=== PATIENT | male | born 1970 | race Caucasian/White ===

== ENCOUNTER 2020-08-25 10:53 | Outpatient (CLI) | payer OTHER, MEDICAID ==
--- NOTE | 2020-08-25 11:53 | XRAY Report ---
PROCEDURE: Cervical Spine 2 View INDICATIONS: CERVICAL PAIN, LUMBAR PAIN TECHNIQUE: 3 view(s) of the cervical spine were acquired. COMPARISON: None. FINDINGS: Bones: Degenerative straightening of usual cervical lordosis. Otherwise normal alignment. Vertebral b alexi heights maintained. From C4-C5 through C6-C7, disc height loss, degenerative endplate change, fac et hypertrophy, and uncovertebral hypertrophy are present. Soft tissues: No prevertebral soft tissue swelling. IMPRESSION: Moderate degenerative changes in the mid and lower cervical spine. Reviewed by: Benitez Dwyer MD on 08/25/2020 11:52 AM [facility] Approved by: Benitez Dwyer MD on 08/25/2020 11:52 AM PST Station ID: [id number]
--- NOTE | 2020-08-25 11:54 | XRAY Report ---
PROCEDURE: Lumbar Spine 2 View INDICATIONS: CERVICAL PAIN, LUMBAR PAIN TECHNIQUE: 2 views of the lumbar spine were acquired. COMPARISON: None. FINDINGS: Bones: There are 5 [id number] vertebral bodies of normal height and alignment disc height loss from and L2-L3 through L5-S1 with associated degenerative endplate changes and facet hypertrophy. Pro bable moderate to severe neural foraminal narrowing is suspected at a few levels. Soft tissues: Overlying bowel gas pattern is normal. No suspicious soft tissue calcifications. IMPRESSION: Overall moderate lower lumbar spine degenerative changes. MRI recommended. Reviewed by: Benitez Dwyer MD on 08/25/2020 11:52 AM PST Approved by: Benitez Dwyer MD on 08/25/2020 11:52 AM PST Station ID: [id number]
== END 2020-08-25 10:54 | disposition home or self-care (01) ==
LOC: DI 10:53
DX: M47.812 Spondylosis without myelopathy or radiculopathy, cervical region (principal); M50.321 Other cervical disc degeneration at C4-C5 level; M47.816 Spondylosis without myelopathy or radiculopathy, lumbar region; M51.36 Other intervertebral disc degeneration, lumbar region; M47.817 Spondylosis without myelopathy or radiculopathy, lumbosacral region; M51.37 Other intervertebral disc degeneration, lumbosacral region

== ENCOUNTER 2021-01-22 08:15 | Outpatient (CLI) | payer MEDICAID, OTHER ==
--- NOTE | 2021-01-22 15:41 | XRAY Report ---
PROCEDURE: Ankle 3 View BILAT INDICATIONS: BILAT ANKLE PAIN TECHNIQUE: 3 views of the ankle were acquired. COMPARISON: None. FINDINGS: Postsurgical changes related to intramedullary bibi and screw fixation of both tibia. There are fractu red distal fixation screws on both sides. There is chronic callus formation of tibial fractures, with bridging ossification present. Some residual fracture lucency seen on the left. No evidence of hardw are loosening. Expected postoperative alignment. Bilateral posterior calcaneal spurs. IMPRESSION: Expected postoperative alignment of internal fixation of the tibia bilaterally. Distal f ixation screws are fractured, technically age indeterminate in the absence of prior studies. Reviewed by: Dani Phelps MD on 01/22/2021 3:39 PM PDT Approved by: Dani Phelps MD on 01/22/2021 3:39 PM PDT Station ID: [id number]
--- NOTE | 2021-01-22 15:42 | XRAY Report ---
PROCEDURE: Knee 4 View BILAT INDICATIONS: KNEE PAIN, BILAETRAL TECHNIQUE: 4 views of the left and right knee(s) were acquired. COMPARISON: None. FINDINGS: Partially visualized internal medullary bibi and screw fixation of both tibia. Hardware appears intact and there is expected postoperative alignment. No evidence of hardware loosening. Mild bilateral kne e joint generation Soft tissues: No joint effusion. No suspicious soft tissue calcifications. Polysomnography Technologist idalmis tibia and fibular fractures are partially visualized with chronic callus formation. IMPRESSION: Mild bilateral knee joint degeneration and postsurgical changes as above. Reviewed by: Dani Phelps MD on 01/22/2021 3:41 PM PDT Approved by: Dani Phelps MD on 01/22/2021 3:41 PM PDT Station ID: [id number]
== END 2021-01-22 23:59 | disposition home or self-care (01) ==
LOC: DI.N 08:15
PROVIDERS: ATTEND Orthopaedic Surgery
DX: M17.0 Bilateral primary osteoarthritis of knee (principal); T84.117A Breakdown (mechanical) of internal fixation device of bone of left lower leg, initial encounter; T84.116A Breakdown (mechanical) of internal fixation device of bone of right lower leg, initial encounter

== ENCOUNTER 2021-06-11 07:00 | Outpatient (CLI) | payer MEDICAID, OTHER ==
--- NOTE | 2021-06-11 15:05 | XRAY Report ---
PROCEDURE: Cervical Spine w/Flex/Ext INDICATIONS: NECK PAIN TECHNIQUE: 8 views of the cervical spine were acquired. COMPARISON: None. FINDINGS: Bones: No fractures or dislocations to the C7-T1 level. No suspicious bony lesions. Decreased inte rvertebral disc space and degenerative endplate changes are noted at C4-5, C5-6 and C6-7 levels. Stra ightening of normal cervical lordosis is seen. There is decreased range of motion between flexion and extension, with preserved normal cervical spine alignment. Oblique views shows mild bilateral bony foraminal stenosis at C5-6 level. Soft tissues: Prevertebral soft tissues are normal in thickness. IMPRESSION: 1. Degenerative disc disease throughout mid to lower cervical spine. No acute fracture or dislocation . 2. Decreased range of motion on lateral flexion and extension views with preserved cervical spine ali gnment. 3. Mild bilateral bony foraminal stenosis at C5-6 level. Reviewed by: Cristobal Carter MD on 06/11/2021 3:04 PM PDT Approved by: Cristobal Carter MD on 06/11/2021 3:04 PM PDT Station ID: [id number]
--- NOTE | 2021-06-11 15:06 | XRAY Report ---
PROCEDURE: Lumbar Spine Complete INDICATIONS: BACK PAIN TECHNIQUE: 5 views of the lumbar spine were acquired. COMPARISON: None. FINDINGS: Bones: 5 [id number]-isr-bqaqwem vertebrae are present. There is normal bony alignment. Degenerative endpla te changes and loss of disc height throughout lumbar spine is seen more prominent at L4-5 and L5-S1 l evels. No vertebral body compression fractures. No suspicious bony lesions. Oblique views shows no gross pars defects. Soft tissues: Overlying bowel gas pattern is normal. No suspicious soft tissue calcifications. IMPRESSION: Degenerative disc disease throughout lumbar spine more prominent at L4-5 and L5-S1 level s. No acute compression fracture or spondylolisthesis. No gross pars defects. Reviewed by: Cristobal Carter MD on 06/11/2021 3:05 PM PDT Approved by: Cristobal Carter MD on 06/11/2021 3:05 PM PDT Station ID: [id number]
== END 2021-06-11 23:59 | disposition home or self-care (01) ==
LOC: DI.N 07:00
PROVIDERS: ATTEND Physician Assistant
DX: M50.321 Other cervical disc degeneration at C4-C5 level (principal); M48.02 Spinal stenosis, cervical region; M51.16 Intervertebral disc disorders with radiculopathy, lumbar region; M51.37 Other intervertebral disc degeneration, lumbosacral region

== ENCOUNTER 2021-06-11 12:46 | Outpatient (CLI) | payer OTHER, MEDICAID | END 2021-06-11 12:47 | disposition home or self-care (01) | LOC: DI 12:46 | PROVIDERS: ATTEND Physician Assistant | DX: Z53.9 Procedure and treatment not carried out, unspecified reason (principal) ==

== ENCOUNTER 2021-09-10 13:38 | Outpatient (CLI) | payer OTHER, MEDICAID ==
[2021-09-10 18:03] LABS: BASOPHILS # (AUTO) 0.1 10^3/uL (0.0-0.1); BASOPHILS % (AUTO) 0.6 %; EOSINOPHILS # (AUTO) 0.2 10^3/uL (0.0-0.7); EOSINOPHILS % (AUTO) 1.7 %; HCT - HEMATOCRIT 44.3 % (42.0-52.0); HGB - HEMOGLOBIN 14.2 g/dL (14.0-18.0); LYMPHOCYTES # (AUTO) 1.9 10^3/uL (1.5-3.5); LYMPHOCYTES % (AUTO) 22.1 %; MEAN CORPUSCULAR HEMOGLOBIN 29.5 pg (27.0-31.0); MEAN CORPUSCULAR HGB CONC 32.1 g/dL (32.0-36.0); MEAN CORPUSCULAR VOLUME 92.1 fL (80.0-94.0); MONOCYTES # (AUTO) 0.6 10^3/uL (0.0-1.0); MONOCYTES % (AUTO) 6.3 %; NEUTROPHILS # (AUTO) 6.1 10^3/uL (1.5-6.6); NEUTROPHILS % (AUTO) 68.8 %; PLT - PLATELET COUNT 246 10^3/uL (130-450); RED BLOOD COUNT 4.81 10^6/uL (4.70-6.10); RED CELL DISTRIBUTION WIDTH 13.2 % (12.0-15.0); WHITE BLOOD COUNT 8.8 x10^3/uL (4.8-10.8)
[2021-09-10 18:43] LABS: ALBUMIN 4.2 g/dL (3.2-5.5); ALBUMIN/GLOBULIN RATIO 1.3 (1.0-2.2); ALKALINE PHOSPHATASE 66 IU/L (42-121); ALT ALANINE AMINOTRANSFERASE 36 IU/L (10-60); AST ASPARTATE AMINOTRANSFERASE 21 IU/L (10-42); BILIRUBIN,TOTAL 0.7 mg/dL (0.2-1.0); BUN - BLOOD UREA NITROGEN 29 mg/dL (6-20); CALCIUM 9.2 mg/dL (8.5-10.3); CARBON DIOXIDE - CO2 27 mmol/L (21-32); CHLORIDE 102 mmol/L (101-111); CHOL/HDL RATIO 5.7 (<5.0); CHOLESTEROL 233 mg/dL; CREATININE 1.4 mg/dL (0.6-1.2); GFR - MDRD 54 (>89); GLUCOSE 101 mg/dL (70-100); HDL CHOLESTEROL 41 mg/dL; LDL CHOLESTEROL,CALCULATED 155 mg/dL; LDL/HDL RATIO 3.8 (<3.6); POTASSIUM 3.9 mmol/L (3.5-5.0); SODIUM 139 mmol/L (135-145); TOTAL PROTEIN 7.5 g/dL (6.7-8.2); TRIGLYCERIDES 185 mg/dL; VLDL CHOLESTEROL 37 mg/dL
[2021-09-10 18:54] LABS: THYROID STIMULATING HORMONE 2.19 uIU/mL (0.34-5.60)
== END 2021-09-10 13:39 | disposition home or self-care (01) ==
LOC: LAB.N 13:38
PROVIDERS: ATTEND Registered Nurse
DX: F51.05 Insomnia due to other mental disorder (principal); Z79.899 Other long term (current) drug therapy; G44.029 Chronic cluster headache, not intractable
CPT/HCPCS: 36415; 80053; 80061; 83721; 84153; 84443; 85025

== ENCOUNTER 2021-11-22 14:03 | Outpatient (CLI) | payer OTHER, MEDICAID ==
--- NOTE | 2021-11-22 15:54 | XRAY Report ---
PROCEDURE: Knee 4 View BILAT INDICATIONS: BILAT KNEE PAIN TECHNIQUE: 4 views of the bilateral knee(s) were acquired. COMPARISON: None. FINDINGS: Bones: There is prior internal fixation of bilateral tibia with intramedullary bibi and fixation scre ws in place. No gross hardware loosening or failure is seen. Mild right worse than left bilateral tri compartmental osteoarthritis is seen more prominent in medial femoral tibial compartments. No fractur es or dislocations. No suspicious bony lesions. Soft tissues: No joint effusion. No suspicious soft tissue calcifications. 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 No acute fracture or dislocation. Prior fixation of bilateral tibia without evidence of gross hardware complication. Reviewed by: Cristobal Carter MD on 11/22/2021 3:53 PM PST Approved by: Cristobal Carter MD on 11/22/2021 3:53 PM PST Station ID: [id number]
== END 2021-11-22 14:04 | disposition home or self-care (01) ==
LOC: DI.WOS 14:03
PROVIDERS: ATTEND Physician Assistant
DX: M17.0 Bilateral primary osteoarthritis of knee (principal)

== ENCOUNTER 2021-12-06 08:00 | Outpatient (CLI) | payer MEDICAID ==
--- NOTE | 2021-12-06 15:57 | XRAY Report ---
PROCEDURE: Tib/Fib BILAT INDICATIONS: BILAT FRACTURE/ORIF TECHNIQUE: 2 views of the tibia and fibula were acquired. COMPARISON: None FINDINGS: Bones: Views of the tibia and fibula bilaterally were performed. The right tibia demonstrates postoperative changes of intramedullary bibi fixation. The distal screws are both fractured. A fracture of the tibia distally demonstrates healing with bridging callus format ion with some persistent lucency along the lateral aspect of the tibia. The left tibia also demonstrates postoperative changes of intramedullary bibi fixation with one intact screw distally and one screw which has been partially removed. The proximal screws in both tibias ar e intact. The fracture of the mid tibia demonstrates healing with bridging callus formation with some persistent lucency. Both ankles are intact. Soft tissues: No suspicious soft tissue calcifications or masses. IMPRESSION: Postoperative changes of intramedullary bibi fixation of bilateral tibial fractures as abo ve. Reviewed by: Tom Arreola on 12/06/2021 3:56 PM PDT Approved by: Tom Arreola on 12/06/2021 3:56 PM PDT Station ID: [id number]
== END 2021-12-06 23:59 ==
LOC: DI.WOS 08:00
PROVIDERS: ATTEND Physician Assistant
DX: S82.202D Unspecified fracture of shaft of left tibia, subsequent encounter for closed fracture with routine healing (principal); S82.201D Unspecified fracture of shaft of right tibia, subsequent encounter for closed fracture with routine healing

== ENCOUNTER 2022-10-11 09:52 | Outpatient (CLI) | payer MEDICAID ==
[2022-10-11 12:39] LABS: BASOPHILS % (AUTO) 0.5 %; EOSINOPHILS # (AUTO) 0.2 10^3/uL (0.0-0.7); EOSINOPHILS % (AUTO) 2.3 %; HCT - HEMATOCRIT 46.1 % (42.0-52.0); HGB - HEMOGLOBIN 14.4 g/dL (14.0-18.0); LYMPHOCYTES % (AUTO) 25.3 %; MEAN CORPUSCULAR HGB CONC 31.2 g/dL (32.0-36.0); MEAN CORPUSCULAR VOLUME 92.8 fL (80.0-94.0); MEAN PLATELET VOLUME 11.4 fL (7.4-11.4); MONOCYTES # (AUTO) 0.6 10^3/uL (0.0-1.0); MONOCYTES % (AUTO) 7.8 %; NEUTROPHILS % (AUTO) 63.6 %; PLT - PLATELET COUNT 239 10^3/uL (130-450); RED BLOOD COUNT 4.97 10^6/uL (4.70-6.10); RED CELL DISTRIBUTION WIDTH 13.2 % (12.0-15.0); WHITE BLOOD COUNT 7.8 x10^3/uL (4.8-10.8)
[2022-10-11 13:06] LABS: ALBUMIN 3.9 g/dL (3.2-5.5); ALBUMIN/GLOBULIN RATIO 1.1 (1.0-2.2); ALKALINE PHOSPHATASE 61 IU/L (42-121); ALT ALANINE AMINOTRANSFERASE 54 IU/L (10-60); AST ASPARTATE AMINOTRANSFERASE 29 IU/L (10-42); BILIRUBIN,TOTAL 0.4 mg/dL (0.2-1.0); BUN - BLOOD UREA NITROGEN 26 mg/dL (6-20); CALCIUM 9.3 mg/dL (8.5-10.3); CARBON DIOXIDE - CO2 26 mmol/L (21-32); CHLORIDE 104 mmol/L (101-111); CHOL/HDL RATIO 5.5 (<5.0); CHOLESTEROL 199 mg/dL; CREATININE 1.1 mg/dL (0.6-1.2); GFR - MDRD 71 (>89); GLUCOSE 117 mg/dL (70-100); HDL CHOLESTEROL 36 mg/dL; LDL CHOLESTEROL,CALCULATED 137 mg/dL; LDL/HDL RATIO 3.8 (<3.6); POTASSIUM 4.1 mmol/L (3.5-5.0); SODIUM 139 mmol/L (135-145); TOTAL PROTEIN 7.6 g/dL (6.7-8.2); TRIGLYCERIDES 128 mg/dL; VLDL CHOLESTEROL 26 mg/dL
[2022-10-11 13:13] LABS: THYROID STIMULATING HORMONE 3.58 uIU/mL (0.34-5.60)
== END 2022-10-11 09:53 | disposition home or self-care (01) ==
LOC: LAB.N 09:52
PROVIDERS: ATTEND Registered Nurse
DX: Z79.899 Other long term (current) drug therapy (principal); Z13.220 Encounter for screening for lipoid disorders; Z12.5 Encounter for screening for malignant neoplasm of prostate; Z13.29 Encounter for screening for other suspected endocrine disorder
CPT/HCPCS: 36415; 80053; 80061; 83721; 84153; 84443; 85025

== ENCOUNTER 2024-01-18 09:36 | Outpatient (CLI) | payer OTHER, MEDICAID ==
--- NOTE | 2024-01-18 13:08 | XRAY Report ---
PROCEDURE: Ankle 1-2V LT INDICATIONS: ANKLE PAIN TECHNIQUE: 2 views of the ankle were acquired. COMPARISON: Bilateral tib-fib radiograph on December 06, 2021 FINDINGS: Bones: No acute fractures or dislocations. The visualized intramedullary bibi and screw fixation of t he distal tibia is intact with no perihardware lucency to suggest hardware loosening. Healed fracture deformity of the distal fibular diaphysis. Ankle mortise is normally aligned on nonweightbearing vie w. No suspicious bony lesions. Soft tissues: No tibiotalar joint effusion. Achilles tendon appears normal. Tiny Achilles calcanea l enthesophyte. IMPRESSION: 1.No acute bony abnormality. If there remains a high clinical concern for fracture, consider cross-se ctional imaging now. If pain persists, consider repeat x-ray in 10-14 days or cross-sectional imaging . 2.Partially visualized intramedullary bibi and screw fixation of the distal tibia is intact without co mplication. Reviewed by: Brad Alfaro MD on 01/18/2024 1:07 PM PDT Approved by: Brad Alfaro MD on 01/18/2024 1:07 PM PDT Station ID: [id number]
== END 2024-01-18 09:37 | disposition home or self-care (01) ==
LOC: DI 09:36
PROVIDERS: ATTEND Internal Medicine Cardiovascular Disease
DX: M25.572 Pain in left ankle and joints of left foot (principal); Z96.89 Presence of other specified functional implants

== ENCOUNTER 2024-04-02 13:20 | Outpatient (CLI) | payer MEDICAID, OTHER ==
--- NOTE | 2024-04-02 14:33 | Sleep Patient Instructions ---
Sleep Center Visit Summary - Patient Visit Information Reason for Visit: Initial consult for evaluation of sleep disordered breathing and other sleep issues. - Patient Instructions Instructions Attached: Sleep Study, Sleep Study Home Monitor Additional Instructions: You will be completing a sleep study, either an in-lab polysomnography (PSG) or home sleep study (HST). You will follow-up in the sleep care office after the sleep study is completed to hear the results and talk about therapy, if needed. You will be called by our office staff to schedule this appointment, but you may contact us with any questions. - Clinic Information Contact: [facility] [address] [place] [id number] [email or web address] T: [phone]
[2024-04-02 14:35] VITALS: BP 136/89; O2SAT 96
--- NOTE | 2024-04-02 14:35 | SLEEP CARE CONSULTATION ---
Information from patient questionnaire entered by Linda Perdue. I have reviewed and concur with the information entered by Linda Perdue. This document represents the service I personally performed and the decisions made by me, Rajani Mason ARNP. History of Present Illness Service Date and Time: 04/02/2024 1320 Reason for Visit: New patient Chief Complaint: reports: Insomnia, Unrefreshed sleep, Excessive daytime sleepiness, Frequent awakenings at night, Other (NIGHT TERRORS, FALLS ASLEEP IN CONVERSATION) Date of Onset: LONG I CAN REMEMBER Usual bedtime: 2049-7407 Time it takes to fall asleep: 60MINS OR SO Snores at night: No Observed to quit breathing while asleep: No Sleeps alone due to snoring: No Number of times waking at night: 3-4 Reasons for waking at night: reports: Pain, Other (NIGHTMARES). denies: Choking, Snoring, Gasping for air Toss, Turn, or Twitch while sleeping: Yes Recalls having dreams: Yes Usually gets out of bed at: 1079-4412 Feels refreshed in the morning: No Morning headache: Yes Sleepy or fatigued during the day: Yes Ever fallen asleep while driving: Yes Takes day naps: Yes Dreams during day naps: Yes Prior sleep studies: Yes Year and Where: 1981 [facility] ? (12 yrs old) Additional HPI information: I had the pleasure of seeing JJ DUARTE today regarding the possibility of him having a sleep disorder. His current complaints are insomnia, unrefreshed sleep, excessive daytime sleepiness, frequent night awakenings, night terrors and falling asleep in conversation. He is constantly falling asleep in a ppointments and other situations. He does not feel he is getting enough sleep. He sometimes is not sure if he is asleep or not. He has a lot of nightmares, night terrors, etc. After a night terror, he cannot fall back to sleep. He will try to get a nap for about an hour in the afternoon on these days after a nightmare. He says normally he get 2.5-3 hours at night. Once he lays down, it can take an our or so to get to sleep. He does snore lightly but no pauses in breathing, gasping or choking in his sleep. He can get headaches in his sleep, has history of cluster headaches. This can happen 3-4 times a week. He has had drowsy driving but no accidents. He is currently not driving because of his daytime fatigue and sleepiness. He uses [employer] now. He says he has walked in his sleep in the past, don't know if it happens currently. He has screamed in his sleep because of nightmares. - Parasomnia Symptoms Ever been unable to move upon waking from sleep: Yes Walks in sleep: Yes Talks in sleep: Yes Ever felt weak in the knees when startled or emotional: Yes Bothered by creepy, crawly, restless sensations in legs: Yes Problems with memory or concentration: Yes Subjective Initial [place] Sleepiness Scale score: 19 (02/25/24) Past Medical History Past Medical History: reports: Hypertension, Arthritis, Anxiety, Asthma, Depression, Mood disorder, Attention deficit (ADHD), Other (SCHIZOAFFECTIVE disorder, PTSD, CLUSTER HEADACHES, BACK PAIN, AUDITORY HALLUCINATIONS, NECK PAIN) Social History 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 Patient is and lives in [place]. Have you smoked in the past 12 months: Yes Cigarettes per day (20/pack): 20 Quit date: 09/2023 Alcohol use: No Caffeine use: No Family History Family history of sleep disordered breathing: No Allergies and Home Medications Known drug allergies: Yes (quetiapine) Drug allergies reviewed: Yes Home medication list reviewed: Yes (as listed) Allergy and home medication list: Allergies quetiapine Adverse Reaction (Verified 04/02/24 14:24) Unknown Medications: Gabapentin 300 mg, twice a day Meloxicam 15 mg daily Verapamil 80 mg daily sumatriptan succinate 50 mg daily Viagra 100 mg daily Lidocaine 5% adhesive patch, daily Latuda 40 mg daily Cyclobenzaprine 10 mg daily Prazosin 1 mg daily Review of Systems Weight gain over past 5 years: 60 Cardiovascular: reports: high blood pressure, leg or foot swelling Respiratory: reports: wheeze Neurological: reports: headaches, head trauma, disorientation, gait or balance problems Psychiatric: reports: Attention Deficit Hyperactivity, anxiety, depression, mood disorder Ear/Nose/Throat: reports: wisdom teeth removed. denies: tonsillectomy Endocrine: reports: sluggishness, too hot or cold Musculoskeletal: reports: joint pain, neck pain, back pain, joint swelling, muscle pain or cramping, mobility problems Physical Exam Vital signs obtained and entered by: RAJANI BABCOCK Blood Pressure: 136/89 Cuff size: long (right arm) Heart Rate: 73 O2 Saturation: 96 Height: 6 ft 2.25 in Weight: 265 lb 12.8 oz Body Mass Index: 33.9 BMI Classification: Obese Neck circumference: 17.5 (inches) Nostrils: patent to airflow Mouth and throat: narrow oropharynx Soft palate: long Hard palate: normal Uvula: normal Uvula visualization: 25% Mallampati Class III Tongue: enlarged in size with teeth bradford on lateral edges Tonsils: 2+ Heart: regular rate and rhythm Lungs: clear bilaterally Impression and Plan 1. Suspected Obstructive Sleep Apnea-Hypopnea Syndrome, as suggested by a history of irregular snoring, morning headache, frequent awakening during the night, unrefreshed sleep, cognitive impairment, and excessive daytime sleepiness. Narrow oropharynx and obesity are common predisposing factors for obstructive sleep apnea-hypopnea syndrome. I recommend proceeding to polysomnography to confirm the diagnosis and to assess severity. If the patient has significant sleep disordered breathing, a manual CPAP titration study will also be performed to find the optimal treatment pressure. I informed the patient of what the sleep studies involve and after some discussion, obtained agreement to proceed. The pathophysiology of obstructive sleep apnea-hypopnea syndrome was discussed with the patient and health risks of cardiovascular and cerebrovascular disease if not treated. Risks of drowsy driving discussed in detail and patient advised to avoid long distance driving and to cloth covered helmet puller at the first sign of drowsiness. Patient agreed to plan. * Schedule polysomnography * Avoid long distance driving or driving when feeling sleepy. * Avoid alcohol, sedative and muscle relaxant around bedtime. * Attempt to lose weight. * Review instructions provided by trained office staff on how to prepare for the sleep study. * Return for follow-up after sleep study completed. Counseling Topics: Weight loss health impact Plan: PSG/HST and follow up Visit Type: In Office Time Spent with Patient (minutes): 33 Provider Statement: I spent 100% of the Face to Face Visit with the patient with greater than 50% spent counseling the patient and coordination of care.
== END 2024-04-02 13:21 | disposition home or self-care (01) ==
LOC: SC 13:20
PROVIDERS: ATTEND Nurse Practitioner Family
DX: R06.83 Snoring (principal); R51.9 Headache, unspecified; G47.8 Other sleep disorders; R41.89 Other symptoms and signs involving cognitive functions and awareness; G47.10 Hypersomnia, unspecified; E66.9 Obesity, unspecified; Z68.33 Body mass index [BMI] 33.0-33.9, adult; I10 Essential (primary) hypertension; F32.A Depression, unspecified
CPT/HCPCS: 99203; 99212

== ENCOUNTER 2024-04-24 09:17 | Outpatient (CLI) | payer MEDICAID | END 2024-04-24 09:18 | disposition home or self-care (01) | LOC: SC 09:17 | PROVIDERS: ATTEND Nurse Practitioner Family | DX: Z53.9 Procedure and treatment not carried out, unspecified reason (principal) | CPT/HCPCS: 95806 ==

== ENCOUNTER 2024-05-01 13:15 | Outpatient (CLI) | payer MEDICAID | END 2024-05-01 13:16 | disposition home or self-care (01) | LOC: SC 13:15 | PROVIDERS: ATTEND Nurse Practitioner Family | DX: G47.33 Obstructive sleep apnea (adult) (pediatric) (principal); E66.9 Obesity, unspecified; Z68.34 Body mass index [BMI] 34.0-34.9, adult | CPT/HCPCS: 95806 ==

== ENCOUNTER 2024-05-28 09:48 | Outpatient (CLI) | payer MEDICAID ==
--- NOTE | 2024-05-28 10:11 | Sleep Patient Instructions ---
Sleep Center Visit Summary - Patient Visit Information Reason for Visit: Sleep study follow-up - Patient Instructions Instructions Attached: Apnea Sleep Mouthpieces Additional Instructions: You have opted for an oral mandibular appliance to control your sleep apnea. A list of certified dentists in the area was provided for you to find a dentist to have your oral appliance made. Once you have the device, please call and make a follow up appointment. We need to see you after you have been using the appliance for a month. We will evaluate your response to therapy and order a follow up sleep study to check efficiency of treatment. Please call office to schedule a follow up appointment in the sleep care office one month after obtaining new device. - Clinic Information Contact: [facility] [address] [place] [address] [email or web address] T: [phone]
--- NOTE | 2024-05-28 10:14 | SLEEP CARE CONSULTATION ---
Information from patient questionnaire entered by Maria A Valdes. I have reviewed and concur with the information entered by Maria A Valdes. This document represents the service I personally performed and the decisions made by , Rajani Mason ARNP. History of Present Illness Service Date and Time: 05/28/2024 0948 Initial [place] Sleepiness Scale score: 19 (02/25/24) Current [place] Sleepiness Scale score: 18 (05/28/24) Additional HPI information: JJ DUARTE returns for follow up and results of the recently performed home sleep study. The sleep study done on 05/02/24 showed mild obstructive sleep apnea with an average AHI of 6.4 and john oxygen saturation of 90%. I explained the pathophysiology behind obstructive sleep apnea. We then spent quite a bit of time discussing different treatment options. For mild obstructive sleep apnea, surgery and oral appliance are alternatives to nasal CPAP therapy but in moderate or severe cases, nasal CPAP is the most effective and reliable treatment. I reviewed the impact of weight changes on sleep apnea and strongly recommended losing weight. After some discussion, the patient opted to go with the oral appliance. Patient counseled not drink alcohol less than 4 hours before bedtime as it can increase snoring and apnea. Patient denies drowsy driving. He does not drive. Sleep Study - Results Prior sleep studies: Yes Year and Where: 1981 [facility] ? (12 yrs old) Polysomnography/Home Sleep Study results: Physician Impression: The quality of the study is good. The length of the study is adequate (> 240 minutes). Please also see the tabulated and graphic data. 1. Obstructive Sleep Apnea-Hypopnea (ICD-10 G47.33), mild, with an AHI of 6.4/hr and john SaO2 of 90%. During the study, the patient had 10 apneas (10 obstructive, 0 central, 0 mixed) and 23 hypopneas. The longest episode lasted 124.5 seconds. The patient did not sleep supine during this study. Allergies and Home Medications Known drug allergies: Yes (as listed) Drug allergies reviewed: Yes Home medication list reviewed: Yes (no changes) Allergy and home medication list: Allergies quetiapine Adverse Reaction Unknown Review of Systems Review of systems same as previous: Yes (no changes) Physical Exam Vital signs obtained and entered by: Rajani Calvert NP Blood Pressure: 139/89 Cuff size: long (left arm) Heart Rate: 81 O2 Saturation: 98 Height: 6 ft 2.25 in Weight: 264 lb Body Mass Index: 33.6 BMI Classification: Obese Impression and Plan 1. Obstructive Sleep Apnea-Hypopnea Syndrome, mild, with lowest oxygen saturation of 90%. Obviously this is the cause of the patients symptoms of unrefreshed sleep, and excessive daytime sleepiness. Positive pressure therapy could benefit hypertension, anxiety, depression, attention deficit and mood disorder. As mentioned above, the patient chose an oral appliance to treat their apnea. He feels he could not tolerate having a CPAP mask on his face. A follow up will be made to see if appliance has reduced symptoms. If so, another polysomnography will be ordered with use of the oral appliance to check efficacy in reducing apnea. 2. Obesity, unspecified. Currently patients BMI is 33.6. Obesity increases the risk of apnea, CPAP pressure requirements and overall health risks especially cardiovascular and diabetes. Thus patient is advised to lose weight. * Oral Appliance. * Attempt to lose weight. * Avoid alcohol consumption near bedtime. * Return one month after oral appliance obtained. I will assess response to therapy at that time and follow up PSG will be ordered. Counseling Topics: Weight loss health impact Prescriptions: Other (Oral Appliance) Visit Type: In Office Time Spent with Patient (minutes): 20 Provider Statement: I spent 100% of the Face to Face Visit with the patient with greater than 50% spent counseling the patient and coordination of care.
[2024-05-28 10:20] VITALS: BP 139/89; O2SAT 98
== END 2024-05-28 09:49 | disposition home or self-care (01) ==
LOC: SC 09:48
PROVIDERS: ATTEND Nurse Practitioner Family
DX: G47.33 Obstructive sleep apnea (adult) (pediatric) (principal); E66.9 Obesity, unspecified; Z68.33 Body mass index [BMI] 33.0-33.9, adult
CPT/HCPCS: 99212; 99213